=== PATIENT | male | born 1965 | race Caucasian/White ===

== ENCOUNTER → 2021-04-07 02:41 | Outpatient (CLI) | payer BC, SELFPAY ==
[2021-04-07 18:57] LABS: SARS-CoV-2 RNA PCR Negative
== END ==
PROVIDERS: PCP Internal Medicine Infectious Disease; Visit Provider Internal Medicine Gastroenterology
DX: Z20.822 Contact with and (suspected) exposure to COVID-19 (principal)
CPT/HCPCS: C9803; U0003; U0005

== ENCOUNTER 2021-04-10 01:51 | Day surgery (SDC) | payer BC, SELFPAY ==
[2021-03-29 14:08] VITALS: BMI 29.6
--- NOTE | 2021-04-10 07:40 | WPDANESEPPF ---
Anes - Initial Pre Proc Eval Procedure: Operation Date: 04/10/21 09:00 Proposed Procedures p Colonoscopy - Marco Antonio Joseph MD Date/Time: 04/10/21 07:40 Surgeon: Marco Antonio Joseph MD Pre Op Diagnosis: change in bowel habits Patient Data Age: 56 Gender: M Height: 1.83 m Weight: 99 kg Allergies Allergy/AdvReac Type Severity Reaction Status Date / Time No Known Allergies Allergy Verified 04/10/21 08:14 Home Medications Medication Instructions Recorded Confirmed Type diclofenac sodium 75 mg PO BID 03/29/21 03/29/21 History testosterone 50 mg TOPICAL DAILY 03/29/21 03/29/21 History Patient hx anesthesia problems: none Family hx anesthesia problems: none [facility] Past Medical History Medical History (Updated 04/10/21 @ 07:40 by Franklin Peacock MD) Overweight (BMI 25.0-29.9) Social History Social History Smoking packs per day: 1 Smoking cigarettes per day: 20.0 Years smoked: 15 Smoking pack-years: 15.00 Smoking status: Former smoker Tobacco type: cigarettes Alcohol intake: current Drinks per week: 1 Living arrangements: with family Spiritual care concerns: No Anes - Eval Final PreProcedure Day of Procedure 04/10/21 07:40 Patient weight: overweight Heart: regular rate and rhythm Lungs: clear to auscultation and normal air movement Airway: Mallampati scale class II Neurological: alert and oriented Last oral intake: >/= 8 hours ASA classification: II Emergent: no Anesthetic plan: proceed Anesthesia type and monitoring: general GIVS Informed Consent: The patient's anesthetic plan and its attendant risks and benefits were discussed with the patient/family/POA. Questions were solicited and answers provided to the satisfaction of the patient/family/POA.
[2021-04-10 08:16] VITALS: BP 145/105; PULSE 84; RESP 20; TEMP 36.1; O2SAT 97; BMI 29.2
[2021-04-10] MEDS: LACTATED RINGERS 1,000 ML 150 ML IV CONT (08:30)
--- NOTE | 2021-04-10 08:59 | PM.HPGS ---
History of Present Illness History of Present Illness Consent: Risks, benefits, and alternatives have been discussed and questions answered. Patient agrees to proceed with procedure. Chief complaint: change in bowel habits Narrative: Roni Serrano is a 56 year old male with alternating constipation and diarrhea, never had a colonoscopy Review of Systems Constitutional: Constitutional: Denies headache(s) and Denies weakness Eyes: Eyes: Denies blurry vision ENT: Reports Normal hearing present, Denies headache(s) and Denies neck pain Cardiovascular: Cardiovascular: Denies chest pain and Denies dyspnea Respiratory: Respiratory: Denies dyspnea Gastrointestinal: Gastrointestinal: Reports no additional gastrointestinal complaints Genitourinary: Genitourinary: Denies dysuria Musculoskeletal: Musculoskeletal: Denies neck pain Integumentary/Breasts: Skin/Breast: Denies dry skin Neurologic: Reports Normal hearing present, Denies headache(s) and Denies weakness Psychiatric: Psychiatric: Denies anxiety Endocrine: Endocrine: Denies change in body appearance Hematologic/Lymphatic: Hematologic/Lymphatic: Denies easy bleeding Allergic/Immunologic: Allergic/Immunologic: Denies urticaria PMFSH Past Medical History Medical History (Updated 04/10/21 @ 08:59 by Marco Antonio Joseph MD) Alternating constipation and diarrhea Overweight (BMI 25.0-29.9) Social History Social History Smoking packs per day: 1 Smoking cigarettes per day: 20.0 Years smoked: 15 Smoking pack-years: 15.00 Smoking status: Former smoker Tobacco type: cigarettes Alcohol intake: current Drinks per week: 1 Living arrangements: with family Spiritual care concerns: No Meds Home Medications and Allergies Home Medications Medication Instructions Recorded Confirmed Type diclofenac sodium 75 mg PO BID 03/29/21 03/29/21 History testosterone 50 mg TOPICAL DAILY 03/29/21 03/29/21 History Allergies Allergy/AdvReac Type Severity Reaction Status Date / Time No Known Allergies Allergy Verified 04/10/21 08:14 Vital Signs Vital Signs - 24 hr 04/10/21 08:16 Temperature 97 F L Pulse Rate 84 Respiratory Rate 20 Blood Pressure 145/105 H Pulse Oximetry 97 Exam Const: General: comfortable and no acute distress HENMT: General nose exam: Normal nares present Eyes: General: appearance normal, both eyes and all related structures Neck: Neck: no JVD Resp: Auscultation: clear to auscultation bilaterally Cardio: Rate: regular rate Rhythm: regular rhythm GI: Inspection: non-distended GI Palp: Yes Soft to palpation Skin: General skin exam: normal color Neuro: General: gait normal Speech: normal speech Extrem: General: normal to inspection Psych: Mental Status: mental status grossly normal Assessment and Plan Assessment and plan (1) Alternating constipation and diarrhea: Code(s): R19.8 - Other specified symptoms and signs involving the digestive system and abdomen Status: Acute Assessment and Plan: colonoscopy with random bx
--- NOTE | 2021-04-10 09:11 | SUR.OPER ---
cecal time 0900
[2021-04-10 09:23] VITALS: BP 128/90; PULSE 80; RESP 14; O2SAT 99
[2021-04-10 09:33] VITALS: BP 130/94; PULSE 78; RESP 14; O2SAT 99
[2021-04-10 09:43] VITALS: BP 145/89; PULSE 78; RESP 15; O2SAT 100
== END 2021-04-10 09:52 | disposition home or self-care (01) ==
PROVIDERS: PCP Internal Medicine; Visit Provider Internal Medicine Gastroenterology
PROC: 0DJD8ZZ Inspection of Lower Intestinal Tract, Via Natural or Artificial Opening Endoscopic (ICD-10-PCS; CPT 45378; principal; 2021-04-10 09:00)
DX: Z12.11 Encounter for screening for malignant neoplasm of colon (principal); K63.89 Other specified diseases of intestine; K57.30 Diverticulosis of large intestine without perforation or abscess without bleeding; K64.8 Other hemorrhoids; K64.4 Residual hemorrhoidal skin tags; Z87.891 Personal history of nicotine dependence; R19.8 Other specified symptoms and signs involving the digestive system and abdomen; R19.7 Diarrhea, unspecified; K59.00 Constipation, unspecified
CPT/HCPCS: 45380; 88305; J2704; J7120

== ENCOUNTER 2024-11-05 08:02 | Outpatient (CLI) | payer BC, SELFPAY ==
--- NOTE | ~2024-11-05 | US_ITS ---
Limited Abdominal Sonogram: Real-time sonographic imaging of the right upper quadrant was performed. Clinical History: Gallstone Findings: The liver appears mildly echogenic, with no evidence of mass lesion or bile duct dilatatio n. Main portal vein demonstrates normal direction of flow. The gallbladder is well distended, and con tains echogenic gallstone. No gallbladder wall thickening. The common bile duct measures 6 mm. The v isualized pancreas, aorta, and IVC are unremarkable. Right kidney measures 13.6 cm in length, with 6 cm lower pole cyst. Impression: Diffuse fatty infiltration of the liver. Cholelithiasis. Reviewed, dictated and finalized at location M. Impression: Diffuse fatty infiltration of the liver. Cholelithiasis.
== END 2024-11-05 08:03 | disposition home or self-care (01) ==
LOC: MICIMG 08:05
PROVIDERS: PCP Internal Medicine; Visit Provider Surgery
DX: K76.0 Fatty (change of) liver, not elsewhere classified (principal); K80.20 Calculus of gallbladder without cholecystitis without obstruction
CPT/HCPCS: 76705

== ENCOUNTER 2025-01-23 08:36 | Outpatient (CLI) | payer BC, SELFPAY ==
--- NOTE | 2025-01-23 09:15 | ECG_ITS ---
Test Date: 2025-01-23 09:26:12 Measurements Intervals [place] Rate: 84 P: 64 CA: 174 QRS: 40 QRSD: 93 T: 57 QT: 339 QTc: 402 Interpretive Statements SINUS RHYTHM CANNOT R/O SEPTAL INFARCT, AGE INDETERMINATE BASELINE ARTIFACT- I, II, AVR, AVL, AVF ABNORMAL ECG No previous ECG available for comparison Electronically Signed On 01-23-2025 10:18:36 CDT by Dave Elizondo D.O.
[2025-01-23 09:55] LABS: Alanine Aminotransferase 23 U/L (6-50); Albumin Level 4.5 g/dL (3.5-5.1); Alkaline Phosphatase 54 U/L (38-126); Amylase 58 U/L (30-110); Aspartate Amino Transferase 29 U/L (17-59); Bilirubin,Total 0.3 mg/dL (0.2-1.3); Lipase 190 U/L (23-300); Total Protein 7.3 g/dL (6.3-8.2)
== END 2025-01-23 08:37 | disposition home or self-care (01) ==
LOC: ANHLAB 08:38
PROVIDERS: PCP Internal Medicine; Visit Provider Surgery
DX: K80.20 Calculus of gallbladder without cholecystitis without obstruction (principal)
CPT/HCPCS: 36415; 80076; 82150; 83690; 93005

== ENCOUNTER 2025-01-25 01:00 | Day surgery (SDC) | payer BC, SELFPAY ==
[2025-01-22 14:09] VITALS: BMI 31.9
--- NOTE | 2025-01-22 14:17 | PC.NURSE ---
Addendum entered by Saad Venegas RN 01/22/25 14:34: Called and informed of time change to be here 0930 for surgery 1130. Original Note: Report to the Outpatient Waiting Room, entrance under the green pavilion located off [facility], at time _1000_ on date _[id number]_. Planned Procedure Time: _1200_.? Time changes happen often and if your time is changed the preop area will call you the afternoon before. - You and your visitor will be asked to self-screen and do not enter if you have any COVID symptoms. Please call surgeon if you need to reschedule. - A mask is optional within the hospital at this time. Patients may have clear liquids (water, carbonated beverages, clear teas, apple juice) until 3 hours prior to surgery with a maximum of 20 ounces. - No food from midnight until time of surgery and no smoking, or chewing tobacco (or any form of nicotine). No chewing gum, candy or mints. Take only the following medications with a SIP of water on the morning of surgery: __Afrin____ DO NOT STOP ANY OF YOUR OTHER PRESCRIPTION MEDICATIONS PRIOR TO SURGERY EXCEPT THE FOLLOWING Hold all vitamins and supplements for 3 days per anesthesiologist. Stop now Medications to discontinue per physician Date to take last dose____ Please no make-up, nail mohawk, hairspray, perfume, deodorant, or body powder the day of surgery.? No jewelry (including any body piercings) or valuables the day of surgery, leave them at home.? Please take a shower or bath the night before, or the morning of, surgery with an antibacterial soap.? Wear comfortable, loose fitting clothing.? - Jewelry must be removed prior to entering the operating room.? Rings and piercings that are not removed may be cut off. - The hospital will not accept responsibility for valuables.? - Please leave all valuables, including medications, at home the day of surgery. If you are going home after surgery, a licensed speedboat driver must drive you home.? - NO public transportation without another adult if you receive anesthesia. - We recommend that an adult stay with you for 24 hours following discharge. - We also recommend that you do not drive, make important decision, drink alcoholic beverages, or take any drugs that were not prescribed by your health care provider for at least 24 hours after your discharge time. Follow any additional instructions given to you from your surgeon. Telephone instructions given to __Roni__and asked if any additional questions and then verbalized understanding. Patient advised to call surgeon office or pre surgery nurse liaison [phone] if any additional questions.
[2025-01-25] VITALS (8 sets, daily range): BP systolic 137–178; BP diastolic 83–96; PULSE 73–96; RESP 13–20; TEMP 36.5–36.7; O2SAT 99–100
--- NOTE | 2025-01-25 09:54 | P.PNAN_ITS ---
Anes - Initial Pre Proc Eval Procedure: Operation Date: 01/25/25 11:30 Proposed Procedures p Laparoscopic Cholecystectomy, Possible Open - Luis Rangel DO Date/Time: 01/25/25 09:54 Surgeon: Luis Rangel DO Pre Op Diagnosis: Sym Cholelithiasis Patient Data Age: 60 Gender: M Height: 1.83 m Weight: 108.6 kg Last Vital Signs Temp 36.5 C 01/25/25 09:35 Pulse 96 01/25/25 09:35 Resp 16 01/25/25 09:35 BP 144/94 H 01/25/25 09:35 Pulse Ox 99 01/25/25 09:35 O2 Del Method Room Air 01/25/25 09:35 Allergies Allergy/AdvReac Type Severity Reaction Status Date / Time Penicillins AdvReac Mild Diarrhea Verified 01/25/25 09:45 Home Medications ?Medication ?Instructions ?Recorded ?Confirmed ?Type diclofenac sodium 75 mg 75 mg PO BID 03/29/21 01/25/25 History tablet,delayed release testosterone 1 % (50 mg/5 gram) 50 mg topical DAILY 03/29/21 01/25/25 History transdermal gel packet ascorbic acid (vitamin C) 500 mg 500 mg PO DAILY 01/22/25 01/25/25 History chewable tablet (Acerola C) cetirizine 10 mg tablet (24Hour 10 mg PO DAILY PRN allergy symptoms 01/22/25 01/25/25 History Allergy) cholecalciferol (vitamin D3) 50 2,000 unit PO DAILY 01/22/25 01/25/25 History mcg (2,000 unit) capsule (Vitamin D3) multivitamin (Daily Multi-Vitamin 1 tablet PO DAILY 01/22/25 01/25/25 History tablet) pseudoephedrine HCl 120 mg 120 mg PO BID PRN nasal congestion 01/22/25 01/22/25 History tablet,extended release (12 Hour Decongestant ER) tadalafil 10 mg tablet (Cialis) 10 mg PO DAILY PRN sexual activity 01/22/25 01/22/25 History Patient hx anesthesia problems: none Family hx anesthesia problems: none Results Review: All pre-operative results and documents have been reviewed as part of the pre- operative evaluation. [facility] Past Medical History Medical History Alternating constipation and diarrhea Overweight (BMI 25.0-29.9) Surgical History Surgical History History of elbow surgery Family History Family History Mother Kidney disease Social History Social History Smoking packs per day: 1 Smoking cigarettes per day: 20.0 Years smoked: 20 Smoking pack-years: 20.00 Smoking status: Former smoker Tobacco type: cigarettes Smoking end date: 01/23/08 Alcohol intake: current Drinks per week: 4 Living arrangements: with family Spiritual care concerns: No Anes - Eval Final PreProcedure Day of Procedure 01/25/25 09:54 Patient weight: obese Heart: regular rate and rhythm Lungs: clear to auscultation Airway: Mallampati scale class II Neurological: alert and oriented Last oral intake: >/= 8 hours ASA classification: II Emergent: no Anesthetic plan: proceed Anesthesia type and monitoring: general ETT and standard monitoring Results Review: All pre-operative results and documents have been reviewed as part of the pre- operative evaluation. Informed Consent: The patient's anesthetic plan and its attendant risks and benefits were discussed with the patient/family/POA. Questions were solicited and answers provided to the satisfaction of the patient/family/POA.
[2025-01-25] MEDS: ACETAMINOPHEN 500 MG TABLET 1000 MG PO (09:58)
[2025-01-25] MEDS: KETOROLAC 15 MG/ML VIAL (*BKC) IV PUSH (10:05)
[2025-01-25] MEDS: LACTATED RINGERS 1,000 ML 30 ML IV CONT ×2 (10:13→12:49)
--- NOTE | 2025-01-25 10:46 | P.HP_ITS ---
H&P: HPI History of Present Illness Date/Time: 01/25/25 10:46 Chief Complaint: Symptomatic cholelithiasis Narrative: this is a 60 year man presents for laparoscopic cholecystectomy. He was previously seen for cholelithiasis and was having some occasional symptoms. He delayed surgery due to dealing with some other medical issues. He presents for surgery. He denies any significant changes since last seen office. Review of Systems Review of Systems: All systems reviewed & are unremarkable except as noted in HPI and below Constitutional: Constitutional: Denies chills, Denies fever(s), Denies headache(s) and Denies weight loss Eyes: Eyes: Denies change in vision ENT: Denies dizziness, Denies headache(s), Denies neck mass and Denies throat swelling Cardiovascular: Cardiovascular: Denies chest pain, Denies lightheadedness and Denies dyspnea Respiratory: Respiratory: Denies cough, Denies dyspnea and Denies wheezing Gastrointestinal: Gastrointestinal: Denies abdominal pain, Denies change in bowel habits, Denies nausea and Denies vomiting Genitourinary: Genitourinary: Denies hematuria and Denies dysuria Musculoskeletal: Musculoskeletal: Reports as per HPI Integumentary/Breasts: Skin/Breast: Reports as per HPI Neurologic: Denies dizziness and Denies headache(s) Allergic/Immunologic: Allergic/Immunologic: Denies throat swelling and Denies wheezing PMFSH Past Medical History Medical History Alternating constipation and diarrhea Overweight (BMI 25.0-29.9) Surgical History Surgical History History of elbow surgery Family History Family History Mother Kidney disease Social History Social History Smoking packs per day: 1 Smoking cigarettes per day: 20.0 Years smoked: 20 Smoking pack-years: 20.00 Smoking status: Former smoker Tobacco type: cigarettes Smoking end date: 01/23/08 Alcohol intake: current Drinks per week: 4 Living arrangements: with family Spiritual care concerns: No Meds Home Medications and Allergies Home Medications ?Medication ?Instructions ?Recorded ?Confirmed ?Type diclofenac sodium 75 mg 75 mg PO BID 03/29/21 01/25/25 History tablet,delayed release testosterone 1 % (50 mg/5 gram) 50 mg topical DAILY 03/29/21 01/25/25 History transdermal gel packet ascorbic acid (vitamin C) 500 mg 500 mg PO DAILY 01/22/25 01/25/25 History chewable tablet (Acerola C) cetirizine 10 mg tablet (24Hour 10 mg PO DAILY PRN allergy symptoms 01/22/25 01/25/25 History Allergy) cholecalciferol (vitamin D3) 50 2,000 unit PO DAILY 01/22/25 01/25/25 History mcg (2,000 unit) capsule (Vitamin D3) multivitamin (Daily Multi-Vitamin 1 tablet PO DAILY 01/22/25 01/25/25 History tablet) pseudoephedrine HCl 120 mg 120 mg PO BID PRN nasal congestion 01/22/25 01/22/25 History tablet,extended release (12 Hour Decongestant ER) tadalafil 10 mg tablet (Cialis) 10 mg PO DAILY PRN sexual activity 01/22/25 01/22/25 History Allergies Allergy/AdvReac Type Severity Reaction Status Date / Time Penicillins AdvReac Mild Diarrhea Verified 01/25/25 09:45 Vital Signs Vital Signs - 24 hr 01/25/25 09:35 Temperature 97.7 F Pulse Rate 96 Respiratory Rate 16 Blood Pressure 144/94 H Pulse Oximetry 99 Oxygen Delivery Room Air Exam Const: General: no acute distress and alert Orientation/consciousness: patient oriented x3 HENMT: Head: normocephalic and atraumatic Ears: hearing grossly normal bilaterally Face/Nose/Sinus: Normal nares present Mouth: Yes Normal oral and palatal mucosa present Eyes: Periorbital: periorbital findings normal Sclera: sclerae normal EO M: EOMs intact bilaterally Neck: Neck: normal visual inspection, no lymphadenopathy and trachea midline Chest: Chest palpation & inspection: normal inspection of the chest Resp: Effort & Inspection: normal respiratory effort Auscultation: clear to auscultation bilaterally Cardio: Jugular venous distension: no JVD Rate: regular rate Rhythm: regular rhythm Heart sounds: S1 normal heart sound present and S2 normal heart sound present Peripheral pulses: Peripheral pulses 2+ throughout GI: Inspection: normal to inspection GI Palp: Yes Soft to palpation, No Tenderness to palpation present (GI), No Guarding due to palpation present (GI) and No Rebound tenderness present Percussion: Yes normal to percussion Auscultation: normal bowel sounds : General: Yes no CVA tenderness Back/Spine/Pelvis: Back: no CVA tenderness Neuro: General: patient oriented x3, no focal motor deficits and CN's II-XI intact bilaterally Cognition (Neuro): normal cognition Speech: normal speech Motor exam (neuro): 5/5 motor strength present throughout Extrem: General: capillary refill normal and no clubbing, cyanosis or edema Assessment and Plan Assessment and plan (1) Symptomatic cholelithiasis: Code(s): K80.20 - Calculus of gallbladder without cholecystitis without obstruction Status: Acute Assessment and Plan: I have recommended Laparoscopic cholecystectomy, possible open. I have discussed the procedure, risks, benefits, and alternatives with the patient. All questions answered. No changes since last seen in office.
--- NOTE | 2025-01-25 10:47 | WPDHPUPDATE1 ---
History and Physical Update Update Date/Time: 01/25/25 10:47 History and Physical has been reviewed, including an updated exam of the patient. There are NO changes in the patient's condition. Risks, benefits, and alternatives have been discussed and questions answered. Patient agrees to proceed with procedure.
[2025-01-25] MEDS: ceFAZolin 2 GM/D5W 50 ML 2 GM/50 ML BAG IVPB (11:46)
[2025-01-25] MEDS: BUPIVACAINE/EPINEPHRINE 0.5% 30 ML VIAL INFILTRATE (12:11)
--- NOTE | 2025-01-25 12:45 | W.PM.PROC2 ---
Procedure Note - Detailed Date of Procedure 01/25/25 Pre-op Diagnosis Symptomatic Cholelithiasis Post-op Diagnosis Same Procedure Performed Laparoscopic cholecystectomy Surgeon Luis Rangel, DO Anesthesia General and Local (0.5% bupivacaine) Indications This is a 60-year-old man who presented with intermittent right upper quadrant pain. An ultrasound had showed evidence of cholelithiasis. His pain was tolerable at 1st therefore he initially avoided surgery, but pain was becoming slightly more frequent. He also was found to have a very large gallstone which did increase the risk of developing gallbladder cancer. Discussions were made with the patient about treatment options and decision was made to proceed with laparoscopic cholecystectomy, possible open. Findings Laparoscopic cholecystectomy was performed. The gallbladder showed evidence of chronic inflammatory changes with a chronically thickened gallbladder wall. There was a large gallstone lodged at the neck of the gallbladder. The cystic duct appeared normal in size. No other significant abnormalities were noted. The gallbladder was removed and sent to the lab for pathology. Description of Procedure Procedure as well as risks, benefits, and alternatives were discussed with patient. Written consent was obtained and placed in chart prior to procedure. The patient was brought back to surgical suite. Patient was placed in supine position on operating table. Time-out was done to confirm patient and procedure. Patient was then intubated by the anesthesia department. Abdomen was prepped and draped in sterile fashion using chlorhexidine prep. 0.5% bupivacaine with epinephrine was infiltrated at each site of incision. A 5 millimeter incision was made near the umbilicus, and a 5 millimeter Optiview trocar was advanced through the abdominal layers under direct visualization. Once inside the abdominal cavity, carbon dioxide was insufflated to create a pneumoperitoneum. The camera was inserted and the abdomen was inspected. No immediate abnormalities were identified. The patient was placed in reverse Trendelenburg position and rotated slightly to the left. An 11 millimeter incision was made in the subxiphoid region, and an 11 millimeter trocar was inserted under direct visualization. Two 5 millimeter incisions were made in the right upper quadrant, and two 5 millimeter trocars were inserted under direct visualization. The gallbladder was identified and grasped at the fundus and retracted superiorly. It was then grasped at the infundibulum retracted laterally. Careful dissection around the neck of the gallbladder was performed using blunt dissection with a [place] grasper and hook electrocautery. The cystic duct was identified, and a window was created behind it. The cystic artery was also identified and a window was created behind it. The critical view of safety was identified, visualizing the cystic duct running directly into the neck of the gallbladder, and the cystic artery running directly into the wall of the gallbladder. A 5 millimeter clip emergency management system director was then used to place 2 clips proximally and 1 clip distally on both the cystic duct and cystic artery. They were then both transected using endoscopic scissors. Once safely away from the ivan hepatitis, the gallbladder was dissected free from the liver bed using hook electrocautery. Hemostasis was achieved along the way. The gallbladder was removed completely and then removed through the subxiphoid port. The liver bed was then inspected. Hemostasis appeared adequate, and our clips appeared secure. The area was gently irrigated with sterile saline. No other abnormalities were seen. The patient was flattened out in bed, and 1 final inspection was made around the abdominal cavity. The subxiphoid port was removed, and a Espinoza Fanta cone was used to approximate the fascia with an 0-Vicryl simple interrupted suture. The remaining ports were then removed under direct visualization, the camera was removed, and the pneumoperitoneum was released. The skin of the incisions was approximated using 4-0 Monocryl subcuticular sutures. Exofin glue was applied on top. The patient was then awakened from anesthesia, extubated, and transferred to recovery. Estimated Blood Loss 5 Pathology Yes (Gallbladder) Complications No immediate complications Condition Stable Disposition Same day [facility] Billing Surgery - Charge Forward: Surgery Billing
--- NOTE | 2025-01-25 13:35 | S_PTH ---
PATIENT: Roni Serrano LOC: [facility] U#:[id number] AGE/SX: 60/M ROOM: RE01/25/[address]: Luis Rangel DO : 1965 BED: DIS: 01/25/2025 SPEC #: [id number] RECD: 01/25/25 14:13 STATUS: NICHOLE REQ #: [id number] ADELSO: 01/25/25 13:[address]: Luis Rangel DEPT: [facility] Surgical RECD BY: Brittaney Alcantar ENTERED: 01/25/25 14:13 SP TYPE: Surgical OTHR DR: Lázaro Lora, Tissues: A - Gallbladder Procedures: Hematoxylin and Eosin Stain Gross and Microscopic Level 3
== END 2025-01-25 14:40 | disposition home or self-care (01) ==
PROVIDERS: PCP Internal Medicine; Visit Provider Surgery
PROC: 0FT44ZZ Resection of Gallbladder, Percutaneous Endoscopic Approach (ICD-10-PCS; CPT 47562; principal; 2025-01-25 11:30)
DX: K80.10 Calculus of gallbladder with chronic cholecystitis without obstruction (principal); Z87.891 Personal history of nicotine dependence; E66.9 Obesity, unspecified; Z68.32 Body mass index [BMI] 32.0-32.9, adult
CPT/HCPCS: 47562; 88304; A9270; J0690; J1100; J1885; J2003; J2250; J2405; J2704; J3010; J7120